=== PATIENT | female | born 1950 | race Caucasian/White ===

== ENCOUNTER 2020-09-20 09:43 | Outpatient (CLI) | payer MEDICARE, BC ==
[2020-09-20] VITALS (21 sets, daily range): BP systolic 111–167; BP diastolic 41–97
== END 2020-09-20 23:59 | disposition home or self-care (01) ==
LOC: CARD DIAG 09:43
PROVIDERS: ATTEND Internal Medicine Cardiovascular Disease
DX: R42 Dizziness and giddiness (principal)
CPT/HCPCS: 93660

== ENCOUNTER 2022-11-27 11:31 | Day surgery (SDC) | payer MEDICARE, BC ==
[2022-11-21 11:22] LABS: BASOPHILS # (AUTO) 0.1 X10'3 (0-0.2); BASOPHILS % (AUTO) 1.2 % (0-1); EOSINOPHILS # (AUTO) 0.4 X10'3 (0-0.9); EOSINOPHILS % (AUTO) 6.3 % (0-6); LYMPHOCYTES # (AUTO) 1.6 X10'3 (1.1-4.8); LYMPHOCYTES % (AUTO) 27.1 % (21-51); MEAN CORPUSCULAR HEMOGLOBIN 30.7 PG (27.0-31.0); MEAN CORPUSCULAR HGB CONC 34.6 g/dL (33.0-36.5); MEAN CORPUSCULAR VOLUME 88.9 FL (78-98); MEAN PLATELET VOLUME 7.6 FL (7.4-10.4); MONOCYTES # (AUTO) 0.7 X10'3 (0-0.9); NEUTROPHILS # (AUTO) 3.3 X10'3 (1.8-7.7); NEUTROPHILS % (AUTO) 53.4 % (42-75); PRE OP HEMATOCRIT 40.9 % (35.0-45.0); PRE OP HEMOGLOBIN 14.1 g/dL (12.0-16.0); PRE OP PLATELET COUNT 233 X10'3 (140-440); RED BLOOD COUNT 4.59 X10'6 (4.20-5.60); RED CELL DISTRIBUTION WIDTH 13.2 % (11.5-14.5)
[2022-11-21 11:24] LABS: CLARITY,URINE SLIGHTLY CLOUDY (Clear); COLOR,URINE STRAW (Yellow); GLUCOSE, URINE >=1000 mg/dl (Neg); KETONES,URINE NEGATIVE (Neg); LEUKOCYTE ESTERASE ,URINE NEGATIVE (Neg); NITRITES, URINE NEGATIVE (Neg); OCCULT BLOOD,URINE NEGATIVE (Neg); PH,URINE 5.5 (4.8-8.0); PROTEIN,URINE NEGATIVE (Neg); UROBILINOGEN,URINE 0.2 E.U/dL (0.2-1.0)
[2022-11-21 11:26] LABS: UA COLLECTION TYPE CLN CATCH MIDSTREAM
[2022-11-21 11:31] LABS: SQUAMOUS EPITHELIAL CELL,UR FEW /LPF (FEW)
[2022-11-21 11:32] LABS: MUCUS STRANDS FEW /LPF (Neg); TRANSITIONAL EPI CELLS,URINE FEW /HPF
[2022-11-21 11:34] LABS: RBC,URINE NONE SEEN /HPF (0-2)
[2022-11-21 11:35] LABS: WBC CLUMPS,URINE FEW /HPF (NEGATIVE)
[2022-11-21 11:39] LABS: BACTERIA,URINE 3+ /HPF (Neg)
[2022-11-21 11:58] LABS: ALBUMIN 4.5 G/DL (3.4-5.0); ALBUMIN/GLOBULIN RATIO 1.4 (1.1-1.5); ALKALINE PHOSPHATASE 69 IU/L (46-116); BLOOD UREA NITROGEN 22 MG/DL (7-18); CALCIUM 9.8 MG/DL (8.5-10.1); CHLORIDE 103 MMOL/L (99-107); CREATININE 0.88 MG/DL (0.40-0.90); PRE OP ALT 43 U/L (30-65); PRE OP ANION GAP 7 (8-16); PRE OP AST 28 U/L (10-37); PRE OP BILIRUB, TOTAL 0.4 MG/DL (0.0-1.0); PRE OP GLUCOSE 144 MG/DL (70-104); PRE OP POTASSIUM 3.6 MMOL/L (3.4-5.1); PRE OP SODIUM 139 MMOL/L (135-145); TOTAL CARBON DIOXIDE 28.7 MMOL/L (24-32); TOTAL PROTEIN 7.8 G/DL (6.4-8.2); eGFR 63 ML/MIN
[2022-11-27] VITALS (11 sets, daily range): BP systolic 98–159; BP diastolic 56–90
[~2022-11-27] VITALS: Ht 170.2 cm; Wt 66.4 kg
[~2022-11-27 11:31] MED LIST: AMLO2.5T2 PO; ASPI-83 PO; CANA300T PO; CHOL400T57 PO; CYAN500T71 PO; DIGO-20 PO; DOCUMENT DATE & TIME OF BETA-BLOCKER PO ONE; FAMO40TA73 PO; FURO-150 PO; GARL1000 PO; INSU100C4 SQ; INSU100V12 SQ; LACT1CAP65 PO; LISI40TA13 PO; NAPR220T67 PO; OMEG1CAP46 PO; PANT-47 PO; PROP120C2 PO; ROPI1TAB6 PO; ROSU10TA2 PO; SEMA1PEN3 SQ; TRAZ-256 PO; TURM500C4 PO; VITA0.4T18 PO; ZINC30CA PO; [UNRECOGNIZED DRUG - CODE] PO; cefazolin 2gm/D5W 100mL 100 ML IV ONE; famotidine 20mg tablet PO ONE; prevagen PO; ringers solution, lacted 1,000 ML IV SCH
[2022-11-27] MEDS ORDERED: enalaprilat dihydrate 2.5mg/2ml vial IV PRN (12:00)
[2022-11-27] MEDS ORDERED: fentaNYL/PF 50MCG/1 ML 2ML syringe IV PRN ×2 (12:00)
[2022-11-27] MEDS ORDERED: morphine 4 MG/ML inj SYRINge IV PRN (12:00)
[2022-11-27] MEDS ORDERED: labetalol 20mg/4ml (5mg/ml) syringe IV PRN (12:00)
[2022-11-27] MEDS ORDERED: ondansetron/PF 4mg/2ml inj IV PRN (12:00)
[2022-11-27] MEDS ORDERED: morphine 2 MG/ML inj. syringe IV PRN (12:00)
[2022-11-27] MEDS ORDERED: ringers solution, lacted 1,000 ML IV SCH (12:00)
[2022-11-27] MEDS ORDERED: BUPIVAcaine/PF 2.5mg/ml (0.25%) 10ml vial ONE (13:26)
[2022-11-27] MEDS ORDERED: sevoflurane 250ml liquid IH ONE (13:46)
[2022-11-27] MEDS ORDERED: labetalol 20mg/4ml (5mg/ml) syringe IV ONE (13:46)
[2022-11-27] MEDS ORDERED: fentaNYL/PF 50MCG/1 ML 2ML syringe ONE (13:51)
[2022-11-27] MEDS ORDERED: acetaminophen 1,000mg/100ml IV 100 ML IV ONE (13:52)
[2022-11-27] MEDS ORDERED: midazolam 1 mg/ML 2ml injection ONE (13:52)
[2022-11-27] MEDS ORDERED: ondansetron/PF 4mg/2ml inj ONE (14:02)
[2022-11-27] MEDS ORDERED: LIDOcaine 2% (20mg/ml) 5ml vial ONE (14:02)
[2022-11-27] MEDS ORDERED: propofol inj 20 ML IV ONE (14:02)
--- NOTE | 2022-11-27 14:41 | NUR ---
Received from OR via , accompanied by Anesthesiologist DR ARMAS and report given by Anesthesiolgist. VSS. ON MASK AT 10 LITERS. IV IN LEFT HAND 20G. RIGHT HAND DRESSING WITH WARNER BANDAGE ICE APPLIED. Addendum: 11/27/22 at 1504 by Mary Burdick RN Amended: Links added.
--- NOTE | 2022-11-27 16:11 | NUR ---
DC HOME: ALL DISCHARGE CRITERIA HAS BEEN MET. VSS, PAIN AT TOLERABLE LEVEL. ABLE TO SAFELY AMBULATE AND TRANSFER SELF. IV TAKEN OUT WITHOUT ANY COMPLICATIONS. ALL DISCHARGE INSTRUCTIONS COVERED WITH PATIENT AND ALL QUESTIONS ANSWERED. PATIENT TAKEN OUT VIA WHEELCHAIR TO PERSONAL VEHICLE WHERE FAMILY/FRIEND DROVE PATIENT HOME. PT PROVIDED WITH ICE PACK. Addendum: 11/27/22 at 1619 by Merissa Banks RN, RN Amended: Links added.
== END 2022-11-27 16:11 | disposition home or self-care (01) ==
LOC: PAS 11:31
PROVIDERS: ATTEND Specialist
DX: G56.01 Carpal tunnel syndrome, right upper limb (principal); E11.9 Type 2 diabetes mellitus without complications; J45.909 Unspecified asthma, uncomplicated; I48.20 Chronic atrial fibrillation, unspecified; G43.909 Migraine, unspecified, not intractable, without status migrainosus; M19.90 Unspecified osteoarthritis, unspecified site; G25.81 Restless legs syndrome; K21.9 Gastro-esophageal reflux disease without esophagitis; I11.9 Hypertensive heart disease without heart failure; E03.9 Hypothyroidism, unspecified; F41.9 Anxiety disorder, unspecified; Z87.891 Personal history of nicotine dependence; Z88.8 Allergy status to other drugs, medicaments and biological substances; Z88.5 Allergy status to narcotic agent; Z90.710 Acquired absence of both cervix and uterus; Z98.890 Other specified postprocedural states; Z79.899 Other long term (current) drug therapy
CPT/HCPCS: 36415; 64721; 80053; 81001; 85025; 87077; 87088; 87186; A6222; J0131; J0690; J2250; J2405; J2704; J3010; J3490; J7030; J7120; Z7506; Z7512; A4565; A6449; A7000

== ENCOUNTER 2022-12-15 12:59 | Day surgery (SDC) | payer MEDICARE, BC ==
[~2022-12-15] VITALS: Ht 170.2 cm; Wt 64.0 kg
[2022-12-15] VITALS (11 sets, daily range): BP systolic 112–162; BP diastolic 67–76
[~2022-12-15 12:59] MED LIST changes: -DOCUMENT DATE & TIME OF BETA-BLOCKER PO ONE; -cefazolin 2gm/D5W 100mL 100 ML IV ONE; -famotidine 20mg tablet PO ONE; -ringers solution, lacted 1,000 ML IV SCH
[2022-12-15] MEDS ORDERED: DOCUMENT DATE & TIME OF BETA-BLOCKER PO ONE (14:00)
[2022-12-15] MEDS ORDERED: cefazolin 2gm/D5W 100mL 100 ML IV ONE (14:00)
[2022-12-15] MEDS ORDERED: ringers solution, lacted 1,000 ML IV SCH ×2 (14:00→17:35)
[2022-12-15 14:19] LABS: BASOPHILS % (AUTO) 0.7 % (0-1); EOSINOPHILS # (AUTO) 1.1 X10'3 (0-0.9); EOSINOPHILS % (AUTO) 15.4 % (0-6); LYMPHOCYTES # (AUTO) 1.6 X10'3 (1.1-4.8); MEAN CORPUSCULAR HEMOGLOBIN 30.8 PG (27.0-31.0); MEAN CORPUSCULAR HGB CONC 34.7 g/dL (33.0-36.5); MEAN CORPUSCULAR VOLUME 88.8 FL (78-98); MEAN PLATELET VOLUME 7.8 FL (7.4-10.4); MONOCYTES # (AUTO) 0.6 X10'3 (0-0.9); MONOCYTES % (AUTO) 8.6 % (2-12); NEUTROPHILS # (AUTO) 3.6 X10'3 (1.8-7.7); NEUTROPHILS % (AUTO) 52.3 % (42-75); PRE OP HEMATOCRIT 40.3 % (35.0-45.0); PRE OP PLATELET COUNT 251 X10'3 (140-440); RED BLOOD COUNT 4.54 X10'6 (4.20-5.60); RED CELL DISTRIBUTION WIDTH 13.1 % (11.5-14.5)
[2022-12-15 14:34] LABS: ALBUMIN 4.2 G/DL (3.4-5.0); ALBUMIN/GLOBULIN RATIO 1.2 (1.1-1.5); ALKALINE PHOSPHATASE 86 IU/L (46-116); BLOOD UREA NITROGEN 22 MG/DL (7-18); BUN/CREATININE RATIO 22.2 (10.0-20.0); CALCIUM 9.9 MG/DL (8.5-10.1); CHLORIDE 104 MMOL/L (99-107); CREATININE 0.99 MG/DL (0.40-0.90); PRE OP ALT 38 U/L (30-65); PRE OP ANION GAP 13 (8-16); PRE OP AST 25 U/L (10-37); PRE OP BILIRUB, TOTAL 0.4 MG/DL (0.0-1.0); PRE OP GLUCOSE 121 MG/DL (70-104); PRE OP POTASSIUM 3.6 MMOL/L (3.4-5.1); PRE OP SODIUM 140 MMOL/L (135-145); TOTAL CARBON DIOXIDE 23.2 MMOL/L (24-32); TOTAL PROTEIN 7.8 G/DL (6.4-8.2); eGFR 55 ML/MIN
[2022-12-15] MEDS ORDERED: BUPIVAcaine/PF 2.5 mg/ml (0.25%) 30ml vial ONE (14:40)
[2022-12-15] MEDS ORDERED: dexamethasone sod phosphate 4mg/ml inj. ONE (15:48)
[2022-12-15] MEDS ORDERED: sevoflurane 250ml liquid IH ONE (15:48)
[2022-12-15 15:55] LABS: C-REACTIVE PROTEIN < 0.05 MG/DL (0.0-0.5)
[2022-12-15] MEDS ORDERED: fentaNYL/PF 50MCG/1 ML 2ML syringe ONE (16:02)
[2022-12-15] MEDS ORDERED: midazolam 1 mg/ML 2ml injection ONE (16:03)
[2022-12-15] MEDS ORDERED: propofol inj 20 ML IV ONE (16:12)
[2022-12-15] MEDS ORDERED: LIDOcaine 1%/PF 5ML 10 MG/ML VIAL ONE (16:12)
[2022-12-15] MEDS ORDERED: ondansetron/PF 4mg/2ml inj ONE (17:08)
--- NOTE | 2022-12-15 17:25 | NUR ---
Received from OR via [facility], accompanied by Anesthesiologist DR APPLE and report given by Anesthesiologist AND RIB BENDER. PT DROWSY, NO S/S OF DISTRESS/DISCOMFORT. 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 Addendum: 12/15/22 at 1747 by Maria Ines Butcher RN Amended: Links added.
[2022-12-15] MEDS ORDERED: ondansetron/PF 4mg/2ml inj IV PRN (17:35)
[2022-12-15] MEDS ORDERED: morphine 4 MG/ML inj SYRINge IV PRN (17:35)
[2022-12-15] MEDS ORDERED: morphine 2 MG/ML inj. syringe IV PRN (17:35)
[2022-12-15] MEDS ORDERED: acetaminophen 1,000mg/100ml IV 100 ML IV PRN (17:35)
[2022-12-15] MEDS ORDERED: meperidine/PF 25mg/ml syringe IV PRN ×2 (17:35)
[2022-12-15] MEDS: meperidine/PF 25mg/ml syringe IV PRN ×2 (17:54→18:25)
--- NOTE | 2022-12-15 19:05 | NUR ---
PT STATES PAIN IS IMPROVED, TOLERATING ORAL INTAKE AND SHE IS READY TO GO HOME. PT ABLE TO AMBULATE SAFELY. D/C INSTRUCTIONS GIVEN AND GONE OVER W/PT AND HER WHOM VERBALIZED UNDERSTANDING. PT D/CD TO HOME VIA W/C TO PRIVATE VEHICLE WITHOUT INCIDENT. Addendum: 12/15/22 at 1911 by Maria Ines Butcher RN Amended: Links added.
== END 2022-12-15 19:05 | disposition home or self-care (01) ==
LOC: PAS 12:59
PROVIDERS: ATTEND Specialist
DX: T81.32XA Disruption of internal operation (surgical) wound, not elsewhere classified, initial encounter (principal); E11.9 Type 2 diabetes mellitus without complications; I48.91 Unspecified atrial fibrillation; I10 Essential (primary) hypertension; E78.5 Hyperlipidemia, unspecified; I47.1 Supraventricular tachycardia; J45.909 Unspecified asthma, uncomplicated; G43.909 Migraine, unspecified, not intractable, without status migrainosus; M19.90 Unspecified osteoarthritis, unspecified site; G25.81 Restless legs syndrome; K21.9 Gastro-esophageal reflux disease without esophagitis; Z87.891 Personal history of nicotine dependence; Z79.899 Other long term (current) drug therapy; Z79.4 Long term (current) use of insulin; Z79.82 Long term (current) use of aspirin; Z88.8 Allergy status to other drugs, medicaments and biological substances; Y83.8 Other surgical procedures as the cause of abnormal reaction of the patient, or of later complication, without mention of misadventure at the time of the procedure; Y92.89 Other specified places as the place of occurrence of the external cause
CPT/HCPCS: 13160; 36415; 80053; 85025; 85651; 86140; 87070; 87075; 87077; 87186; A6222; J0131; J1100; J2175; J2250; J2405; J2704; J3010; J3490; J7030; J7120; Z7506; Z7508; Z7512; A4615; A6449; A7000